=== PATIENT | female | born 1955 | race Hispanic/Latino ===

== ENCOUNTER 2020-12-30 09:36 | Emergency (ER) | payer BC, OTHER ==
[~2020-12-30] VITALS: Ht 152.4 cm; Wt 72.6 kg
[~2020-12-30 09:36] MED LIST: ASPI-1443 PO; EMPA25TA PO; GLUC-172 PO; INSU100I24 SQ; LOSA50TA64 PO; MAGN100T5 PO; METF-446 PO; METO-391 PO; SIMV-46 PO; SOLI5 PO; TICA90TA PO
[2020-12-30 09:38] VITALS: BP 179/81
[2020-12-30] MEDS: TETANUS/DIPHTHERIA TOXOID [ADULT] 0.5 ML VIAL IM SCH (10:11)
[2020-12-30] MEDS: ACETAMINOPHEN 325 MG TAB PO SCH (10:11)
[2020-12-30 10:33] VITALS: BP 139/59
[2020-12-30 11:34] VITALS: BP 145/67
[2020-12-30] MEDS: MORPHINE 4 MG SYG IM SCH (12:00)
[2020-12-30] MEDS: MORPHINE 4 MG SYG ONE (12:02)
[2020-12-30 12:35] VITALS: BP 144/60
[2020-12-30] MEDS ORDERED: TYL3B PO (12:35)
[2020-12-30] MEDS: OCTYL 2-CYANOACRYLATE 1 EACH TP ONE (12:43)
== END 2020-12-30 12:58 | disposition home or self-care (01) ==
LOC: EDH 09:36
DX: S02.2XXA Fracture of nasal bones, initial encounter for closed fracture (principal); S01.21XA Laceration without foreign body of nose, initial encounter; S80.01XA Contusion of right knee, initial encounter; S80.02XA Contusion of left knee, initial encounter; S80.211A Abrasion, right knee, initial encounter; S80.212A Abrasion, left knee, initial encounter; S20.219A Contusion of unspecified front wall of thorax, initial encounter; I25.10 Atherosclerotic heart disease of native coronary artery without angina pectoris; I10 Essential (primary) hypertension; Z79.82 Long term (current) use of aspirin; Z79.899 Other long term (current) drug therapy; W01.0XXA Fall on same level from slipping, tripping and stumbling without subsequent striking against object, initial encounter; Y93.89 Activity, other specified; Y92.89 Other specified places as the place of occurrence of the external cause; Y99.8 Other external cause status
CPT/HCPCS: 12011; 70450; 70486; 72125; 73562 ×2; 90471; 90714; 96372; 99285; J2270

== ENCOUNTER → 2021-10-13 | Outpatient (CLI) | payer BC ==
[~2021-10-13] MED LIST changes: +TYL3B PO
== END | disposition home or self-care (01) ==
LOC: RAH 07:18
PROVIDERS: ATTEND Family Medicine
DX: R10.11 Right upper quadrant pain (principal)
CPT/HCPCS: 78227; A9537

== ENCOUNTER → 2022-09-09 | Outpatient (CLI) | payer BC ==
[2022-09-09 12:37] LABS: BASOPHILS % (AUTO) 0.9 % (0.0-5.0); EOSINOPHILS % (AUTO) 8.8 % (0.0-8.0); HEMATOCRIT 43.6 % (36-48); LYMPHOCYTES % (AUTO) 25.4 % (21.0-51.0); MEAN CORPUSCULAR HEMOGLOBIN 27.7 pg (27.0-33.0); MEAN CORPUSCULAR VOLUME 89.3 fL (79-99); MONOCYTES % (AUTO) 8.8 % (3.0-13.0); NEUTROPHILS % (AUTO) 55.8 % (40.0-77.0); PLATELET COUNT (AUTO) 246 K/uL (130-400); RED BLOOD CELL COUNT(AUTO) 4.88 MIL/uL (4.00-5.50); RED CELL DISTRIBUTION WIDTH 13.1 % (11.0-15.5); WHITE BLOOD COUNT (AUTO) 6.4 K/uL (4.8-10.8)
[2022-09-09 12:51] LABS: APPEARANCE,URINE CLEAR (CLEAR); BILIRUBIN,URINE NEGATIVE (NEGATIVE); COLOR,URINE COLORLESS (YELLOW); GLUCOSE, URINE (UA) >=1000 mg/dL (NEGATIVE); KETONES,URINE NEGATIVE (NEGATIVE); LEUKOCYTE ESTERASE ,URINE NEGATIVE Leu/uL (NEGATIVE); NITRATE,URINE NEGATIVE (NEGATIVE); OCCULT BLOOD,URINE NEGATIVE (NEGATIVE); PROTEIN,URINE NEGATIVE (NEGATIVE); UROBILINOGEN,URINE 0.2 mg/dL (0.2-1.0)
[2022-09-09 13:14] LABS: HEMOGLOBIN A1C 10.7 % (4.0-6.0)
[2022-09-09 13:22] LABS: MUCUS,URINE RARE LPF (None Seen); RBC,URINE 0-1 /HPF (0-1); SQUAMOUS EPITHELIAL CELL,UR RARE /HPF (0-2); WBC,URINE 0-1 /HPF (0-1); YEAST,URINE BUDDING RARE /HPF (None Seen)
[2022-09-09 13:30] LABS: T4 (THYROXINE) 8.3 ug/dL (4.7-13.3)
[2022-09-09 13:43] LABS: CREATININE 0.7 mg/dL (0.5-1.5); THYROID STIMULATING HORMONE 3.04 uIU/mL (0.36-3.74); TOTAL PROTEIN, SERUM 7.4 g/dL (6.0-8.3)
== END | disposition home or self-care (01) ==
LOC: LAB 08:05
PROVIDERS: ATTEND Physician Assistant
DX: I25.119 Atherosclerotic heart disease of native coronary artery with unspecified angina pectoris (principal); I10 Essential (primary) hypertension
CPT/HCPCS: 36415; 80053; 80061; 81001; 82652; 83036; 84436; 84443; 84479; 85025

== ENCOUNTER 2023-04-09 07:40 | Day surgery (SDC) | payer BC, MEDICARE ==
[2023-04-07 13:44] LABS: BASOPHILS # (AUTO) 0.06 K/uL (0.00-0.20); BASOPHILS % (AUTO) 0.9 % (0.0-5.0); EOSINOPHILS # (AUTO) 0.23 K/uL (0.00-0.70); EOSINOPHILS % (AUTO) 3.6 % (0.0-8.0); HEMATOCRIT 45.6 % (36-48); IMMATURE GRANULOCYTE ABSOLUTE 0.01 K/uL (0-1); LYMPHOCYTES # (AUTO) 1.8 K/uL (1.0-4.8); LYMPHOCYTES % (AUTO) 27.5 % (21.0-51.0); MEAN CORPUSCULAR HEMOGLOBIN 28.8 pg (27.0-33.0); MEAN CORPUSCULAR HGB CONC 31.8 g/dL (32.0-36.0); MEAN CORPUSCULAR VOLUME 90.5 fL (79-99); MONOCYTES # (AUTO) 0.5 K/uL (0.1-1.0); MONOCYTES % (AUTO) 8.2 % (3.0-13.0); NEUTROPHILS # (AUTO) 3.8 K/uL (1.8-7.7); NEUTROPHILS % (AUTO) 59.6 % (40.0-77.0); PLATELET COUNT (AUTO) 253 K/uL (130-400); RED BLOOD CELL COUNT(AUTO) 5.04 MIL/uL (4.00-5.50); RED CELL DISTRIBUTION WIDTH 13.4 % (11.0-15.5); WHITE BLOOD COUNT (AUTO) 6.4 K/uL (4.8-10.8)
[2023-04-07 13:56] LABS: CREATININE 0.7 mg/dL (0.5-1.5); POTASSIUM 4.5 mmol/L (3.5-5.1)
[2023-04-07 14:01] LABS: INR < 0.93 (0.85-1.15); PROTHROMBIN TIME 10.4 SEC (9.6-11.6)
[2023-04-07 14:02] VITALS: BP 151/74; PULSE 69; RESP 17
[2023-04-07 14:02] LABS: PARTIAL THROMBOPLASTIN TIME 26.5 SEC (26.3-35.5)
[2023-04-07 14:03] LABS: ADD UA MICROSCOPIC YES; APPEARANCE,URINE CLEAR (CLEAR); BILIRUBIN,URINE NEGATIVE (NEGATIVE); COLOR,URINE LIGHT-YELLOW (YELLOW); GLUCOSE, URINE (UA) >=1000 mg/dL (NEGATIVE); KETONES,URINE NEGATIVE (NEGATIVE); LEUKOCYTE ESTERASE ,URINE NEGATIVE Leu/uL (NEGATIVE); NITRATE,URINE NEGATIVE (NEGATIVE); OCCULT BLOOD,URINE NEGATIVE (NEGATIVE); PROTEIN,URINE NEGATIVE (NEGATIVE); UROBILINOGEN,URINE 0.2 mg/dL (0.2-1.0)
[2023-04-07 14:08] LABS: MUCUS,URINE RARE LPF (None Seen); SQUAMOUS EPITHELIAL CELL,UR RARE /HPF (0-2); WBC,URINE 0-1 /HPF (0-1)
[2023-04-07 14:20] LABS: B-TYPE NATRIURETIC PEPTIDE 74 pg/mL (0-100)
[2023-04-09] VITALS (8 sets, daily range): BP systolic 108–138; BP diastolic 51–89; PULSE 65–84; RESP 16–18
[~2023-04-09] VITALS: Ht 152.4 cm; Wt 56.5 kg
[~2023-04-09 07:40] MED LIST changes: +CLOP-31 PO; +DULA1.5P SQ; +GLIP5TAB15 PO; -GLUC-172 PO; -INSU100I24 SQ; +INSU300I SQ; +ISOS30TA92 PO; +LOSA25TA41 PO; -LOSA50TA64 PO; -METO-391 PO; +METO-408 PO; +NITR0.4T50 SL; +RANO500T6 PO; +ROSU10TA28 PO; -SIMV-46 PO; -SOLI5 PO; -TICA90TA PO; -TYL3B PO; +VITAMIN D3 PO
[2023-04-09] MEDS ORDERED: 0.9%NACL 1000ML 1,000 ML IV ONE (09:06)
[2023-04-09] MEDS ORDERED: NITROGLYCERIN 50MG VIAL ONE (11:23)
[2023-04-09] MEDS ORDERED: HEPARIN 10,000 UNIT/10ML (1,000 UNIT/ML) VIAL ONE (11:23)
[2023-04-09] MEDS ORDERED: IOHEXOL 350 MG/ML 100ML INFUS..BTL IV ONE (11:23)
[2023-04-09] MEDS ORDERED: SODIUM BICARB 50MEQ 50ML VIAL 50 ML ONE (11:23)
[2023-04-09] MEDS ORDERED: IOHEXOL-350 50ML VIAL IV ONE (11:23)
[2023-04-09] MEDS ORDERED: LIDOCAINE HCL 400MG/20ML VIAL ONE (11:23)
[2023-04-09] MEDS ORDERED: MEPERIDINE-PF 25 MG/ML SYG ONE ×2 (11:47→12:34)
[2023-04-09] MEDS ORDERED: MIDAZOLAM HCL 1 MG/ML 2ML VIAL ONE ×2 (11:47→12:34)
[2023-04-09] MEDS ORDERED: NICARDIPINE 25MG INJ IV ONE (12:00)
[2023-04-09] MEDS ORDERED: ACETAMINOPHEN WITH CODEINE 1 TAB TAB PO PRN ×2 (13:00)
[2023-04-09] MEDS ORDERED: 0.9%NACL 1000ML 1,000 ML IV SCH (13:00)
[2023-04-09] MEDS ORDERED: ONDANSETRON 4MG INJ ONE (15:38)
== END 2023-04-09 17:00 | disposition home or self-care (01) ==
LOC: DAH 07:40
PROVIDERS: ATTEND Internal Medicine Cardiovascular Disease
DX: I25.119 Atherosclerotic heart disease of native coronary artery with unspecified angina pectoris (principal); I11.0 Hypertensive heart disease with heart failure; I50.30 Unspecified diastolic (congestive) heart failure; E11.9 Type 2 diabetes mellitus without complications; I25.2 Old myocardial infarction; E78.5 Hyperlipidemia, unspecified; Z79.82 Long term (current) use of aspirin; Z79.84 Long term (current) use of oral hypoglycemic drugs; Z82.49 Family history of ischemic heart disease and other diseases of the circulatory system; Z83.3 Family history of diabetes mellitus; Z79.01 Long term (current) use of anticoagulants; Z95.5 Presence of coronary angioplasty implant and graft; Z79.899 Other long term (current) drug therapy; Z98.890 Other specified postprocedural states; Z86.79 Personal history of other diseases of the circulatory system
CPT/HCPCS: 80048; 83880; 85025; 85610; 85730; 81001; 36415; 71045; 93005; 93458; 96360; 96361; 82948; Q9965; C1769; A4649; C1894; J3490 ×4; J7030; J1644 ×2; J2250 ×2; J2405; J2175 ×2; Q9967 ×2; A4215; A4222; A4221; A4663; A4216; A4606; A4223 ×3; 99156; 99157

== ENCOUNTER → 2023-09-22 | Outpatient (CLI) | payer BC, MEDICARE ==
[~2023-09-22] MED LIST changes: +ALBUTEROL 0.083% 2.5 MG/3 ML INH IH ONE; -ROSU10TA28 PO; +ROSU10TA72 PO
== END | disposition home or self-care (01) ==
LOC: RESP 14:06
PROVIDERS: ATTEND Internal Medicine Cardiovascular Disease
DX: R06.00 Dyspnea, unspecified (principal); R06.02 Shortness of breath
CPT/HCPCS: 94060

== ENCOUNTER → 2024-04-29 | Outpatient (CLI) | payer BC ==
[~2024-04-29] MED LIST changes: -ALBUTEROL 0.083% 2.5 MG/3 ML INH IH ONE
--- NOTE | 2024-05-02 11:56 | HMCSR ---
APPROVED REPORT EXAM: Two-dimensional and M-mode echocardiogram with Doppler and color Doppler. INDICATION ICD: Essential (primary) Hypertension I10.0 2D Dimensions RVDd3.3 cmLVEF(%)71.1 (>50%)LVED Vol(simp.)89.5 mL IVSd0.7 (0.7-1.1cm)FS(%)40 %LVES Vol(simp.)38.0 mL LVDd4.0 (3.8-5.6cm)LA (2D)3.5 (1.6-4.0cm)LVEF(%, simp.)58 % PWd0.9 (0.7-1.1cm)Ao Root(2D)2.8 (2.0-3.7cm)LA ESV INDEX (4CH)15.30 mL/m2 IVSs1.2 cmLVOT diam1.9 (1.8-2.4cm)LA ESV INDEX (2CH)22.90 mL/m2 LVDs2.5 (2.5-4.0cm)LA ESV INDEX (BP)20.80 mL/m2 PWs1.3 cm M-Mode Dimensions EPSS0.8 cm LA (MM)3.8 (1.6-4.0cm) Ao Root(MM)2.8 (2.0-3.7cm) Aortic Valve AoV VTI0.3 mAo Mean GR3.0 mmHgLVOT VTI0.19 m SHIREEN (VMAX)1.9 cm2AVA (VTI) 1.9 cm2 Mitral Valve MV E Vmax66.5 cm/sDECEL Cnvz684 ms MV A Vmax62.1 cm/sP 1/2 T68 ms E/A ratio1.1MVA (PHT)3.2 cm2 TDI E/E' Kduknu86.2E/E' Lateral9.4 Medial E' Peak V4.10 cm/sLateral E' Peak V7.10 cm/s Pulmonary Valve PV VTI0.21 mPV Mean GR2 mmHg Left Ventricle The left ventricle is normal size. There is normal LV segmental wall motion. There is normal left becky tricular wall thickness. LVEF is 55-60%. No left ventricle thrombus noted on this study. The left becky tricular diastolic function is normal. Right Ventricle The right ventricle is normal size. The right ventricular systolic function is normal. Atria The left atrium size is normal. The right atrium size is normal. Aortic Valve The aortic valve is normal in structure. No aortic regurgitation is present. There is no aortic valvu lar stenosis. Mitral Valve The mitral valve is normal in structure. There is no mitral valve regurgitation noted. There is no mi tral valve stenosis. Tricuspid Valve The tricuspid valve is normal in structure. There is no tricuspid valve regurgitation noted. Pulmonic Valve The pulmonary valve is normal in structure. There is no pulmonic valvular regurgitation. Great Vessels The aortic root is normal in size. The IVC is normal in size and collapses >50% with inspiration. Pericardium There is no pericardial effusion. Conclusion The left ventricle is normal size. LVEF is 55-60%. The right ventricle is normal size. The left atrium size is normal. The aortic valve is normal in structure. No aortic regurgitation is present. There is no aortic valvular stenosis. The mitral valve is normal in structure. There is no mitral valve regurgitation noted. There is no mitral valve stenosis. There is no tricuspid valve regurgitation noted. There is no pulmonic valvular regurgitation. The aortic root is normal in size. The IVC is normal in size and collapses >50% with inspiration. There is no pericardial effusion.
== END | disposition home or self-care (01) ==
LOC: SHCH 07:36
PROVIDERS: ATTEND Internal Medicine Cardiovascular Disease
DX: I10 Essential (primary) hypertension (principal)
CPT/HCPCS: 93306

== ENCOUNTER 2024-10-17 12:11 | Emergency (ER) | payer BC, MEDICARE ==
[~2024-10-17] VITALS: Ht 152.4 cm; Wt 62.6 kg
[2024-10-17 12:35] LABS: IMMATURE GRANULOCYTE ABSOLUTE 0.03 K/uL (0-1); NUCLEATED RED BLOOD CELLS 0.0 % (0.0-0.19); PLATELET COUNT (AUTO) 236 K/uL (130-400); RED BLOOD CELL COUNT(AUTO) 4.66 MIL/uL (4.00-5.50); RED CELL DISTRIBUTION WIDTH 13.7 % (11.0-15.5); WHITE BLOOD COUNT (AUTO) 7.0 K/uL (4.8-10.8)
[2024-10-17] MEDS: ASPIRIN 81MG CHEW TAB PO ONE (12:40)
[2024-10-17] MEDS: NITROGLYCERIN 0.4 MG SL TAB SL PRN (12:40)
[2024-10-17 12:49] LABS: CREATININE 0.7 mg/dL (0.5-1.0); GLOMERULAR FILTR. RATE CALC 92.0 mL/min (>90); GLUCOSE,RANDOM 114.0 mg/dL (70-105); SODIUM SERUM 143.0 mmol/L (136-145); UREA NITROGEN, BLOOD 23.0 mg/dL (7-18)
[2024-10-17 13:02] VITALS: O2SAT 98
--- NOTE | 2024-10-17 13:29 | EKG ---
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
--- NOTE | 2024-10-17 13:49 | HMCIMG ---
EXAM: CR Chest, 1 View. CLINICAL HISTORY: cp COMPARISON: Radiograph dated April 07, 2023 FINDINGS: LUNGS: The lungs show no infiltrate or other acute finding. PLEURAL SPACES: No pleural effusion or pneumothorax. MEDIASTINUM: Cardiac size and mediastinal contours within normal limits. BONES: No aggressive appearing osseous lesion seen. IMPRESSION: No acute cardiopulmonary pathology is evident. /[place]
[2024-10-17 15:00] VITALS: BP 155/74; PULSE 70; RESP 17; TEMP 98.3
--- NOTE | 2024-10-17 15:10 | ERN ---
ED Note History of Present Illness Stated Complaint: CP Chief Complaint: Chest Pain Time Seen by MD: 12:16 Time Seen by Midlevel: 12:20 Dictation: 69-year-old female sent by PCP is to rule out acute NH. As per patient she has been having intermittent chest pain for the last three months radiating to the back. Patient states the back pain is worse when she eats. Patient does has a history of hypertension, diabetes, cholesterol. At the time of my triage patient denies having any complaints or any chest pain or short discomfort. Allergies: Coded Allergies: No Known Drug Allergies (Unverified Allergy, Unknown, 10/01/17) Home Meds Active Scripts Clopidogrel Bisulfate (Plavix) 75 Mg Tablet, 75 MG PO DAILY, #30 TAB 0 Refills Prov:RAQUEL THOMPSON MD 02/15/23 Reported Medications [Vitamin D3] No Conflict Check, 1 TAB PO DAILY 04/07/23 Glipizide (Glipizide) 5 Mg Tablet, 5 MG PO AM, TAB 04/07/23 Ranolazine (Ranolazine ER) 500 Mg Tab.er.12h, 500 MG PO BID, TAB 04/07/23 Nitroglycerin (Nitroglycerin) 0.4 Mg Tab.subl, 0.4 MG SL AD PRN for CHEST PAIN, TAB.SL 04/07/23 Rosuvastatin Calcium (Rosuvastatin Calcium) 10 Mg Tablet, 10 MG PO HS, TAB 04/07/23 Isosorbide Mononitrate (Isosorbide Mononitrate ER) 30 Mg Tab.er.24h, 30 MG PO AM, TAB 04/07/23 Insulin Glargine,Hum.rec.anlog (Tiff Solrenéar) 300 Unit/Ml (1.5 Ml) Insuln.pen, 25 UNIT SQ PM, SYRINGE 02/14/23 Dulaglutide (Trulicity) 1.5 Mg/0.5 Ml Pen.injctr, 1.5 MG SQ weekly 02/14/23 Losartan Potassium (Losartan Potassium) 25 Mg Tablet, 25 MG PO DAILY, TAB 02/14/23 Metoprolol Succinate (Metoprolol Succinate) 25 Mg Tab.er.24h, 25 MG PO DAILY, TAB 02/14/23 Magnesium Amino Acid Chelate (Magnesium) 100 Mg Tablet, 650 MG PO DAILY, TAB 11/02/17 Aspirin (Aspirin EC) 81 Mg Tablet.dr, 81 MG PO HS, TAB 10/29/17 Metformin HCl (Metformin HCl) 1,000 Mg Tablet, 1000 MG PO BID, TAB 10/29/17 Empagliflozin (Jardiance) 25 Mg Tablet, 25 MG PO DAILY, TAB 10/29/17 Past Medical History Past Medical History: Diabetes-Type II, Heart Disease, Hypertension Surgical History: Other Surgical History Other: CARDIAC STENTS Social History: Lives with family Review of System Dictation Constitutional: Negative for fever,chills, and weight loss Eyes: Negative for injury, pain,redness, and discharge ENT: Negative for injury,pain or swelling Cardiovascular: Negative for chest pain, palpitations, and edema Respiratory: Negative for shortness of breath, cough, and wheezing, Abdomen/GI: Negative for abdominal pain, nausea, vomiting, diarrhea, and constipation Back: Negative for injury and pain : Negative for injury, bleeding and discharge MS/Extremity: Negative for injury and deformity Skin: Negative for rash, and discoloration Neuro: Negative for headache, weakness, numbness, tingling, and seizure Psych: Negative for suicide ideation, homicidal ideation, and hallucinations Review of Systems: was completed Initial Vital Sign VS Vital Signs Date Time Temp Pulse Resp B/P (MAP) Pulse Ox O2 Delivery O2 Flow Rate FiO2 10/17/24 12:14 97.0 79 18 150/58 97 10/17/24 13:02 Room Air* 0 21 Physical Exam Dictation General: awake, alert, NAD Head/Face: Normocephalic, atraumatic Eyes: PERRL, EOMI, vision at baseline ENT: oral cavity clear, TMs clear, no signs of infection Neck: Trachea midline, supple, no nuchal rigidity Cardiovascular: RRR, normal S1/S2, No MRGs, no JVD Respiratory: CTAB, no respiratory distress, No rales or wheezes Abdomen: Soft, non-tender, non-distended, normal bowel sounds, no guarding or rebound. Skin: Warm, dry, normal turgor, no rash MS/Extremity: Pulses equal, no cyanosis, neurovascular intact, FROM Neuro: COAx4, GCS 15, strength 5/5, CN 2-12 intact, normal cerebellar exam, normal gait, Psych: Normal behavior, mood, and affect normal Results (Laboratory/Radiology) Laboratory/Radiology Laboratory Tests Test 10/17/24 12:28 10/17/24 14:23 White Blood Count 7.0 K/uL (4.8-10.8) Red Blood Count 4.66 MIL/uL (4.00-5.50) Hemoglobin 14.0 g/dL (12.0-16.0) Hematocrit 43.7 % (36-48) Mean Corpuscular Volume 93.8 fL (79-99) Mean Corpuscular Hemoglobin 30.0 pg (27.0-33.0) Mean Corpuscular Hemoglobin Concent 32.0 g/dL (32.0-36.0) Red Cell Distribution Width 13.7 % (11.0-15.5) Platelet Count 236 K/uL (130-400) Mean Platelet Volume 9.2 fL (7.5-10.5) Immature Granulocyte % (Auto) 0.4 % (0-1) Neutrophils (%) (Auto) 72.4 % (40.0-77.0) Lymphocytes (%) (Auto) 17.1 % (21.0-51.0) L Monocytes (%) (Auto) 6.8 % (3.0-13.0) Eosinophils (%) (Auto) 2.6 % (0.0-8.0) Basophils (%) (Auto) 0.7 % (0.0-5.0) Neutrophils # (Auto) 5.0 K/uL (1.8-7.7) Lymphocytes # (Auto) 1.2 K/uL (1.0-4.8) Monocytes # (Auto) 0.5 K/uL (0.1-1.0) Eosinophils # (Auto) 0.18 K/uL (0.00-0.70) Basophils # (Auto) 0.05 K/uL (0.00-0.20) Absolute Immature Granulocyte (auto 0.03 K/uL (0-1) Nucleated Red Blood Cells 0.0 % (0.0-0.19) Sodium Level 143 mmol/L (136-145) Potassium Level 4.5 mmol/L (3.5-5.1) Chloride Level 104 mmol/L (101-111) Carbon Dioxide Level 32 mmol/L (21-32) Blood Urea Nitrogen 23 mg/dL (7-18) H Creatinine 0.7 mg/dL (0.5-1.0) Glomerular Filtration Rate Calc 92 mL/min (>90) Random Glucose 114 mg/dL (70-105) H Total Calcium 9.7 mg/dL (8.5-10.1) Troponin I High Sensitivity 7 ng/L (4-50) 8 ng/L (4-50) Labs Reviewed?: Yes EKG Comment: EKGs done at 12:16 p.m.. Sinus rhythm, RBBB. Rate of 64, no STEMI interpreted by ER MD. ED Course ED Course Orders Procedure Category Date Status Time Cbc With Differential LAB 10/17/24 Complete 12:25 Chest 1vw RAD 10/17/24 Resulted 12:25 12 Lead Ekg Tracing- EKG 10/17/24 Complete Technical 12:25 Aspirin 81mg Chew Tab PHA 10/17/24 Complete (Aspirin 81mg Chew 12:30 Nitroglycerin 0.4mg PHA 10/17/24 In Process Sl Tab (Nitrostat) 12:30 Troponin I High LAB 10/17/24 Complete Sensitivity 12:25 Basic Metabolic Panel LAB 10/17/24 Complete 12:25 Troponin I High LAB 10/17/24 Complete Sensitivity 14:14 Current Medications Medications (Trade) Dose Ordered Sig/Teresa Route PRN Reason Start Time Stop Time Status Last Admin Dose Admin Aspirin (Aspirin 81mg Chew Tab) 324 mg ONCE ONCE PO 10/17/24 12:30 10/17/24 12:31 DC 10/17/24 12:40 Nitroglycerin (Nitrostat) 0.4 mg Q5M PRN SL CHEST PAIN 10/17/24 12:30 10/17/24 12:40 Vital Signs Date Time Temp Pulse Resp B/P (MAP) Pulse Ox O2 Delivery O2 Flow Rate FiO2 10/17/24 15:00 98.2 70 17 155/74 Room Air* 0 21 10/17/24 13:02 98.4 66 12 120/56 98 Room Air* 0 21 10/17/24 12:14 97.0 79 18 150/58 97 HEART Score Response (Comments) Value History: Low suspicion (0) 0 EKG: Normal 0 Age: > 65yrs (+2) 2 Risk Factors: 1-2 risk factors (+1) 1 Initial Troponin: Normal limit (0) 0 Total 3 Medical Decision Making MDM MDM: 69-year-old female sent by PCP is to rule out acute NH. As per patient she has been having intermittent chest pain for the last three months radiating to the back. Patient states the back pain is worse when she eats. Patient does has a history of hypertension, diabetes, cholesterol. At the time of my triage patient denies having any complaints or any chest pain or short discomfort. Blood work unremarkable. Troponin x2 negative. Heart score of three. Discussed findings with the patient. Educated patient needs to follow up with her PCP return to the hospital as needed. Differential diagnosis: NSTEMI, STEMI, electrolyte abnormality, Rationale: Tests considered and ordered secondary to shared decision making include: Previous outside records reviewed: Old ER visits. Risk of complication and/or morbidity or mortality of patient management: None Medications-Per medication reconciliation Need for hospitalization: Patient does not meet criteria for hospitalization. Need for emergency major/minor surgery: No There are no social concerns with this patient. Prescription drug management Prescriptions will include symptomatic care Patient's prior external medical records from other ER visits were reviewed by me as indicated. Prior testing and results from previous visits were reviewed. Prior tests were taken into account with medical decision making and resource utilization, independent historian/historians were used to obtain complete medical history. I independently interpreted the test that were performed, results were reviewed by me and considered findings on radiology if ordered. Medical management and examination interpretation discussions were had by me with other qualified healthcare professionals as indicated for the patient's care. DX & DISP Disposition: Transfer Departure Impression: Primary Impression: Chest pain in adult Condition: Stable Additional Instructions: Your workup is negative. 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 Avoid eating any spicy, greasy or fried foods power. As this could be attributed also to your discomfort and this is why it is the chest pain is worse when you eat. Referrals: GINA THAKUR MD (PCP) Time of Disposition: 15:09 I have reviewed the case, and I agree with, Diagnosis and Plan ALEX HERNANDEZ NP Oct 17, 2024 15:10
== END 2024-10-17 15:25 | disposition home or self-care (01) ==
LOC: EDH 12:11
DX: R07.89 Other chest pain (principal); E11.9 Type 2 diabetes mellitus without complications; I11.9 Hypertensive heart disease without heart failure; Z79.02 Long term (current) use of antithrombotics/antiplatelets; Z79.82 Long term (current) use of aspirin; Z79.84 Long term (current) use of oral hypoglycemic drugs; Z79.85 Long-term (current) use of injectable non-insulin antidiabetic drugs; Z79.899 Other long term (current) drug therapy; Z95.5 Presence of coronary angioplasty implant and graft
CPT/HCPCS: 36415; 71045; 80048; 84484; 85025; 93005; 99284